=== PATIENT | male | born 2000 | race Caucasian/White ===

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

== ENCOUNTER 2021-06-23 21:00 | Emergency (ER) | payer BC, MEDICAID ==
[~2021-06-23] VITALS: Ht 170.2 cm; Wt 65.8 kg
[2021-06-23 21:30] VITALS: BP_SYST 121
[2021-06-23] MEDS ORDERED: KETOROLAC TROMETHAMINE 60 MG/2 ML VIAL IM ONE (22:30)
[2021-06-23] MEDS ORDERED: MORPHINE 4 MG INJ. 4 MG/ML VIAL IM ONE (22:30)
[2021-06-24] MEDS ORDERED: IBUP-1971 PO (00:22)
[2021-06-24 00:38] VITALS: BP_SYST 121
== END 2021-06-24 00:38 | disposition home or self-care (01) ==
LOC: SED 21:00
DX: S43.101A Unspecified dislocation of right acromioclavicular joint, initial encounter (principal); V00.311A Fall from snowboard, initial encounter; Y93.23 Activity, snow (alpine) (downhill) skiing, snowboarding, sledding, tobogganing and snow tubing; Y92.89 Other specified places as the place of occurrence of the external cause; Y99.8 Other external cause status
CPT/HCPCS: 73030; 96372; 99284; J1885; J2270